=== PATIENT | male | born 1975 | race Two or more races ===

== ENCOUNTER 2021-03-05 12:08 | Outpatient (CLI) | payer OTHER | END 2021-03-05 12:20 | disposition home or self-care (01) | LOC: RAD 12:08 | PROVIDERS: ATTEND Orthopaedic Surgery | DX: M25.531 Pain in right wrist (principal); M79.641 Pain in right hand ==

== ENCOUNTER 2021-03-09 14:11 | Outpatient (CLI) | payer OTHER | END 2021-03-09 14:21 | disposition home or self-care (01) | LOC: RAD 14:11 | PROVIDERS: ATTEND Orthopaedic Surgery | DX: S62.316A Displaced fracture of base of fifth metacarpal bone, right hand, initial encounter for closed fracture (principal) ==

== ENCOUNTER 2023-09-22 16:28 | Emergency (ER) | payer OTHER ==
[~2023-09-22] VITALS: Ht 180.3 cm; Wt 72.6 kg
[2023-09-22] MEDS ORDERED: VASOTEC10 MG (16:41)
== END 2023-09-22 21:24 | disposition home or self-care (01) ==
LOC: ER 16:30
DX: M77.8 Other enthesopathies, not elsewhere classified (principal); I10 Essential (primary) hypertension; M10.9 Gout, unspecified